=== PATIENT | female | born 1975 | race Caucasian/White ===

== ENCOUNTER 2022-06-28 11:52 | Emergency (ER) | payer OTHER ==
[~2022-06-28] VITALS: Ht 160 cm; Wt 69.4 kg
[~2022-06-28 11:52] MED LIST: AMOX500C25 PO; CLAR500T3 PO; OMEP40EC24 PO
[2022-06-28 12:19] VITALS: BP 132/77
[2022-06-28] MEDS ORDERED: KETOROLAC 30 MG/ML VIAL IM ONE (12:50)
[2022-06-28] MEDS ORDERED: IBUP-1842 PO (14:56)
--- NOTE | 2022-06-28 15:00 | NUR ---
Patient discharged with v/s stable. Written and verbal after care instructions given. Patient alert, oriented and verbalized understanding of instructions. Ambulatory with steady gait. All questions addressed prior to discharge. ID band removed. Patient advised to follow up with PMD. Rx of Ibuprofen given. Opportunity to ask questions provided and answered. Discharged by ALYSON Barbosa.
--- NOTE | 2022-06-28 15:12 | NUR ---
The patient's care was reviewed and supervised by ED Agency Nurse 9, RN, RN.
== END 2022-06-28 15:00 | disposition home or self-care (01) ==
LOC: MED 11:52
DX: S20.212A Contusion of left front wall of thorax, initial encounter (principal); Z90.49 Acquired absence of other specified parts of digestive tract; X58.XXXA Exposure to other specified factors, initial encounter; Y93.89 Activity, other specified; Y92.89 Other specified places as the place of occurrence of the external cause; Y99.8 Other external cause status
CPT/HCPCS: 71101; 96372; 99283; J1885